=== PATIENT | female | born 1930 ===

== ENCOUNTER → 2016-09-18 | Outpatient (CLI) | payer MEDICARE, OTHER ==
[2016-09-18 14:34] LABS: Basophils # (auto) 0.1 uL; CONDITION Y; Eosinophils # (auto) 0.1 uL; Eosinophils % (auto) 1.3 % (0.0-7.0); Hematocrit 40.5 % (36.0-46.0); Hemoglobin 13.4 g/dL (12.2-16.2); Lymphocytes # (auto) 1.5 uL; Mean Corpuscular Hemoglobin 31.1 pg (28.0-32.0); Mean Corpuscular Hgb Conc. 33.1 g/dL (32.0-36.0); Mean Platelet Volume 8.1 fL (7.4-10.4); Monocytes # (auto) 0.6 uL; Neutrophils # (auto) 5.8 uL; Neutrophils % (auto) 71.7 % (37.0-80.0); Platelet Count (auto) 375 10^3/uL (140-450); Red Cell Distribution Width 14.5 % (11.6-16.0); White Blood Cell 8.1 10^3/uL (4.4-10.8)
[2016-09-18 15:28] LABS: Albumin 3.9 g/dL (3.4-5.0); BUN/Creatinine Ratio 22.9; Bilirubin, Total 0.6 mg/dL (0.2-1.0); Calcium 8.9 mg/dL (8.5-10.1); Magnesium 2.6 mg/dL (1.6-2.6); Potassium 4.1 mmol/L (3.5-5.1); Total Protein 7.3 g/dL (6.4-8.2)
== END | disposition home or self-care (01) ==
LOC: LAB 14:15
PROVIDERS: ATTEND Internal Medicine
DX: I10 Essential (primary) hypertension (principal); K21.9 Gastro-esophageal reflux disease without esophagitis
CPT/HCPCS: 36415; 80053; 83735; 85025

== ENCOUNTER → 2017-05-15 | Outpatient (CLI) | payer MEDICARE, OTHER ==
[2017-05-15 17:49] LABS: Albumin 4.2 g/dL (3.4-5.0); Anion Gap 10 (5-15); BUN/Creatinine Ratio 25.2; Basophils # (auto) 0.1 uL; Basophils % (auto) 0.7 % (0.0-2.0); Blood Urea Nitrogen 30 mg/dL (7-18); Calcium 9.4 mg/dL (8.5-10.1); Carbon Dioxide 28 mmol/L (21-32); Chloride 98 mmol/L (98-107); Eosinophils # (auto) 0.1 uL; Eosinophils % (auto) 0.9 % (0.0-7.0); GFR African American 55 mL/min; GFR Non-African American 45 mL/min; Glucose 113 mg/dL (74-106); Hematocrit 42.5 % (36.0-46.0); Lymphocytes # (auto) 1.6 uL; Lymphocytes % (auto) 14.4 % (10.0-50.0); Mean Corpuscular Hemoglobin 30.1 pg (28.0-32.0); Mean Corpuscular Hgb Conc. 33.1 g/dL (32.0-36.0); Mean Corpuscular Volume 90.9 fL (80.0-100.0); Monocytes # (auto) 0.7 uL; Monocytes % (auto) 6.4 % (0.0-12.0); Neutrophils # (auto) 8.4 uL; Neutrophils % (auto) 77.6 % (37.0-80.0); Nucleated Red Blood Cells % 0.1 %; Platelet Count (auto) 425 10^3/uL (140-450); Potassium 3.7 mmol/L (3.5-5.1); Red Blood Cells 4.67 10^6/uL (4.0-5.20); Red Cell Distribution Width 15.5 % (11.8-14.3); Sodium 136 mmol/L (136-145); White Blood Cell 10.8 10^3/uL (4.4-10.8)
[2017-05-15 17:53] LABS: Alanine Aminotransferase 17 U/L (13-56); Alkaline Phosphatase 59 U/L (45-117); Aspartate Aminotransferase 19 U/L (15-37); Bilirubin, Total 0.3 mg/dL (0.2-1.0); Total Protein 8.4 g/dL (6.4-8.2)
== END | disposition home or self-care (01) ==
LOC: LAB 17:15
PROVIDERS: ATTEND Internal Medicine
DX: I10 Essential (primary) hypertension (principal); R06.09 Other forms of dyspnea
CPT/HCPCS: 36415; 80053; 84484; 85025; 85379

== ENCOUNTER → 2017-05-20 | Outpatient (CLI) | payer MEDICARE, OTHER | END | disposition home or self-care (01) | LOC: XY 10:24 | PROVIDERS: ATTEND Internal Medicine | DX: I26.99 Other pulmonary embolism without acute cor pulmonale (principal) | CPT/HCPCS: 78582; A9540; A9558 ==